=== PATIENT | female | born 1975 | race Two or more races ===

== ENCOUNTER → 2024-12-03 | Outpatient (CLI) | payer BC ==
[2024-12-03 11:36] LABS: Hematocrit 45.3 % (36.0-46.0); Hemoglobin 15.4 g/dL (12.2-16.2); Mean Corpuscular Hemoglobin 29.9 pg (28.0-32.0); Mean Corpuscular Volume 87.9 fL (80.0-100.0); Nucleated Red Blood Cells % 0.0 %
[2024-12-03 11:38] LABS: Urine Protein, UAD Negative (Negative)
[2024-12-03 12:24] LABS: Alanine Aminotransferase 26 U/L (7-40); Albumin 4.6 g/dL (3.2-4.8); Alkaline Phosphatase 75 U/L (46-116); Anion Gap 7 (5-15); BUN/Creatinine Ratio 18.4 (10.0-20.0); Blood Urea Nitrogen 14 mg/dL (9-23); Calcium 9.9 mg/dL (8.7-10.4); Carbon Dioxide 28 mmol/L (20-31); Chloride 103 mmol/L (98-107); Glucose 92 mg/dL (74-106); Potassium 4.6 mmol/L (3.5-5.1); Sodium 138 mmol/L (136-145); Total Protein 7.3 g/dL (5.7-8.2); Triglycerides 131 mg/dL (< 150)
[2024-12-03 12:25] LABS: Bilirubin, Total 0.3 mg/dL (0.2-1.0)
[2024-12-03 12:33] LABS: Cholesterol 208 mg/dL (< 200); HDL Cholesterol 65 mg/dL (40-59)
[2024-12-03 13:34] LABS: Hepatitis A Total Antibody Positive (Negative); Hepatitis B Surface Antigen Negative (Negative); Hepatitis C Antibody Negative (Negative)
== END | disposition home or self-care (01) ==
LOC: LAB 11:12
PROVIDERS: ATTEND Nurse Practitioner Family
DX: K62.5 Hemorrhage of anus and rectum (principal); E78.5 Hyperlipidemia, unspecified; R73.09 Other abnormal glucose; D64.9 Anemia, unspecified; E55.9 Vitamin D deficiency, unspecified; Z11.3 Encounter for screening for infections with a predominantly sexual mode of transmission; Z12.9 Encounter for screening for malignant neoplasm, site unspecified
CPT/HCPCS: 36415; 80053; 80061; 81001; 82274; 82306; 82607; 83036; 84443; 85025; 86703; 86704; 86706; 86708; 86780; 86803; 87340

== ENCOUNTER 2025-01-07 09:30 | Outpatient (CLI) | payer BC ==
[2025-01-07 10:16] LABS: Hematocrit 44.0 % (36.0-46.0); Hemoglobin 14.8 g/dL (12.2-16.2); Mean Corpuscular Hemoglobin 29.7 pg (28.0-32.0); Mean Corpuscular Volume 88.2 fL (80.0-100.0); Nucleated Red Blood Cells % 0.1 %
[2025-01-07 10:26] LABS: Urine Budding Yeast OCCASIONAL /hpf (None Seen); Urine Protein, UAD Negative (Negative)
[2025-01-07 10:40] LABS: Alanine Aminotransferase 19 U/L (7-40); Albumin 4.2 g/dL (3.2-4.8); Alkaline Phosphatase 68 U/L (46-116); Anion Gap 8 (5-15); BUN/Creatinine Ratio 12.0 (10.0-20.0); Bilirubin, Total 0.3 mg/dL (0.2-1.0); Calcium 8.9 mg/dL (8.7-10.4); Carbon Dioxide 25 mmol/L (20-31); Chloride 105 mmol/L (98-107); Cholesterol 186 mg/dL (< 200); Glucose 87 mg/dL (74-106); Potassium 4.2 mmol/L (3.5-5.1); Sodium 138 mmol/L (136-145); Total Protein 7.3 g/dL (5.7-8.2); Triglycerides 111 mg/dL (< 150)
[2025-01-07 10:46] LABS: Blood Urea Nitrogen 9 mg/dL (9-23); HDL Cholesterol 66 mg/dL (40-59)
== END 2025-01-07 17:00 | disposition home or self-care (01) ==
LOC: LAB 09:30
PROVIDERS: ATTEND Nurse Practitioner Family
DX: I10 Essential (primary) hypertension (principal); E78.5 Hyperlipidemia, unspecified; E55.9 Vitamin D deficiency, unspecified
CPT/HCPCS: 36415; 80053; 80061; 81001; 82306; 83036; 84443; 85025

== ENCOUNTER → 2025-01-10 | Day surgery (SDC) | payer BC ==
[2025-01-07 10:18] LABS: Hematocrit 43.3 % (36.0-46.0); Hemoglobin 15.0 g/dL (12.2-16.2); Mean Corpuscular Hemoglobin 30.5 pg (28.0-32.0); Mean Corpuscular Volume 87.9 fL (80.0-100.0); Nucleated Red Blood Cells % 0.0 %
[2025-01-07 10:29] LABS: INR 1.02 (0.9-1.15); Partial Thromboplastin Time 28.5 SEC (24.5-34.5); Prothrombin Time 10.8 sec (9.3-11.8)
[2025-01-07 10:35] LABS: Alanine Aminotransferase 18 U/L (7-40); Albumin 4.2 g/dL (3.2-4.8); Alkaline Phosphatase 69 U/L (46-116); Anion Gap 8 (5-15); BUN/Creatinine Ratio 13.2 (10.0-20.0); Blood Urea Nitrogen 10 mg/dL (9-23); Calcium 8.9 mg/dL (8.7-10.4); Carbon Dioxide 26 mmol/L (20-31); Chloride 105 mmol/L (98-107); Glucose 87 mg/dL (74-106); Potassium 4.2 mmol/L (3.5-5.1); Sodium 139 mmol/L (136-145); Total Protein 7.3 g/dL (5.7-8.2)
[2025-01-07 10:37] LABS: Bilirubin, Total 0.3 mg/dL (0.2-1.0)
[2025-01-10] MEDS: fentaNYL CITRATE 100 MCG/2 ML VL ONE (12:56)
[2025-01-10] MEDS: MIDAZOLAM HCL 2MG/2ML 2ml VIAL (1mg/ml) ONE ×2 (12:56→13:14)
--- NOTE | 2025-01-10 13:20 | DVHNC2 ---
Procedure - DATE OF PROCEDURE: 2024 SURGEON: Jose Rao MD REFERRING PROVIDER: Dr Linares PROCEDURE PERFORMED: 1. Esophagogastroduodenoscopy with biopsy with moderate sedation 2. Colonoscopy with moderate sedation INDICATIONS FOR THE PROCEDURE: The patient is a 49-year-old female who presents for outpatient endoscopy and colonoscopy for dysphagia, epigastric abdominal pain and colon cancer screening PRE-PROCEDURE DIAGNOSIS: 1. Colon cancer screening 2. Epigastric abdominal pain 3. Dysphagia POSTPROCEDURE DIAGNOSIS 1. Mild erosive esophagitis, Z-line at 37 cm 2. Mild gastritis 3. Internal hemorrhoids otherwise normal colonoscopy MEDICATIONS USED: 7 mg of Versed IV and 100 mcg of fentanyl IV DETAILS OF THE PROCEDURE: Informed consent was obtained after risks, benefits, and alternatives, were discussed at length with the patient. The patient gave consent to the procedure as well as the medication used for sedation. The patient was placed in the left lateral decubitus position. An Olympus endoscope was inserted into the oropharynx and advanced into the esophagus, then into the stomach then into the duodenal bulb and duodenum and withdrawn. The duodenal bulb and duodenum are normal. The stomach showed gastritis biopsies were taken. Retroflexion showed no abnormalities. The scope was then withdrawn. The patient had mild erosive esophagitis. The Z-line was at 37 cm. The patient tolerated the procedure well. The patient remained in the left lateral decubitus positionDigital rectal exam showed internal hemorrhoids. An Olympus variable torsion pediatric colonoscope was inserted into the rectum and advanced to the cecum. The cecum was identified by the ileocecal valve and the appendiceal orifice. [place] bowel prep score of 8 was noted. The scope was then withdrawn. There were no large polyps, masses, strictures, or arteriovenous malformation seen. Retroflexion showed internal hemorrhoids. More than 6 minutes withdrawal time. The patient tolerated the procedure well. Start time: 1308 Cecum time: 1311 End time: 1317 IMPRESSION: 1. Endoscopy showing mild gastritis and mild esophagitis 2. Colonoscopy showing colon Internal hemorrhoids otherwise normal colonoscopy RECOMMENDATIONS: 1. Follow up in GI clinic for procedure and pathology results 2. High-fiber diet 3. Continue current medications 4. Anti-reflux precautions 5.Consider functional causes of dysphagia or further workup with imaging or motility for 6. Repeat colonoscopy in 10 years unless otherwise indicated I WOULD LIKE TO THANK DR. LINARES FOR THIS REFERRAL JOSE RAO MD Jan 10, 2025 13:20
[2025-01-10 13:22] VITALS: PULSE 93; RESP 12; TEMP 97.6; O2SAT 93
[2025-01-10 13:45] VITALS: BP 112/71; PULSE 70; RESP 18
== END | disposition home or self-care (01) ==
LOC: GI 11:32
PROVIDERS: ATTEND Specialist
DX: Z12.11 Encounter for screening for malignant neoplasm of colon (principal); R10.13 Epigastric pain; R13.10 Dysphagia, unspecified; K29.50 Unspecified chronic gastritis without bleeding; K64.8 Other hemorrhoids; E78.5 Hyperlipidemia, unspecified; F41.9 Anxiety disorder, unspecified; J45.909 Unspecified asthma, uncomplicated; Z98.890 Other specified postprocedural states
CPT/HCPCS: 36415; 43239; 45378; 80053; 81025; 85025; 85610; 85730; 88305; 88342; J2250; J3010

== ENCOUNTER 2025-03-10 08:23 | Outpatient (CLI) | payer BC ==
[2025-03-10 10:08] LABS: Alanine Aminotransferase 15 U/L (7-40); Albumin 4.2 g/dL (3.2-4.8); Alkaline Phosphatase 77 U/L (46-116); Anion Gap 7 (5-15); BUN/Creatinine Ratio 8.6 (10.0-20.0); Calcium 8.7 mg/dL (8.7-10.4); Carbon Dioxide 28 mmol/L (20-31); Chloride 104 mmol/L (98-107); Glucose 84 mg/dL (74-106); Potassium 4.1 mmol/L (3.5-5.1); Sodium 139 mmol/L (136-145); Total Protein 7.3 g/dL (5.7-8.2)
[2025-03-10 10:09] LABS: Bilirubin, Total 0.4 mg/dL (0.2-1.0)
[2025-03-10 10:13] LABS: Blood Urea Nitrogen 7 mg/dL (9-23)
== END 2025-03-10 17:00 | disposition home or self-care (01) ==
LOC: LAB 08:23
PROVIDERS: ATTEND Nurse Practitioner Family
DX: N85.8 Other specified noninflammatory disorders of uterus (principal); R19.00 Intra-abdominal and pelvic swelling, mass and lump, unspecified site
CPT/HCPCS: 36415; 80053; 86304